=== PATIENT | male | born 1970 | race Two or more races ===

== ENCOUNTER 2018-12-02 00:11 | Emergency (ER) | payer MEDICAID ==
[~2018-12-02] VITALS: Ht 175.3 cm; Wt 88.5 kg
[2018-12-02 01:21] LABS: Basophils # (auto) 0.1 uL; Basophils % (auto) 0.9 % (0.0-2.0); Eosinophils # (auto) 0.3 uL; Eosinophils % (auto) 3.1 % (0.0-7.0); Hemoglobin 14.8 g/dL (13.5-17.5); Lymphocytes # (auto) 1.5 uL; Lymphocytes % (auto) 15.1 % (10.0-50.0); Mean Corpuscular Hemoglobin 29.9 pg (28.0-32.0); Mean Corpuscular Hgb Conc. 34.4 g/dL (32.0-36.0); Mean Corpuscular Volume 86.8 fL (80.0-100.0); Monocytes # (auto) 0.6 uL; Monocytes % (auto) 6.5 % (0.0-12.0); Neutrophils # (auto) 7.3 uL; Neutrophils % (auto) 74.4 % (37.0-80.0); Nucleated Red Blood Cells % 0.1 %; Platelet Count (auto) 385 10^3/uL (140-450); Red Blood Cells 4.95 10^6/uL (4.5-5.90); Red Cell Distribution Width 13.5 % (11.8-14.3); White Blood Cell 9.8 10^3/uL (4.4-10.8)
[2018-12-02 01:37] LABS: Chloride 107 mmol/L (98-107); Sodium 139 mmol/L (136-145)
[2018-12-02 01:40] LABS: Albumin 4.1 g/dL (3.4-5.0); Anion Gap 7 (5-15); Blood Urea Nitrogen 18 mg/dL (7-18); Calcium 9.2 mg/dL (8.5-10.1); Carbon Dioxide 25 mmol/L (21-32); Glucose 103 mg/dL (74-106)
[2018-12-02 01:46] LABS: Alanine Aminotransferase 25 U/L (16-61); Alkaline Phosphatase 117 U/L (45-117); Aspartate Aminotransferase 19 U/L (15-37); BUN/Creatinine Ratio 14.9; GFR African American 82 mL/min; GFR Non-African American 68 mL/min; Total Protein 8.4 g/dL (6.4-8.2)
[2018-12-02 01:55] LABS: Bilirubin, Total 0.2 mg/dL (0.2-1.0)
[2018-12-02 10:01] VITALS: BP 122/77
== END 2018-12-02 10:59 | disposition home or self-care (01) ==
LOC: ER 00:22
DX: R07.89 Other chest pain (principal); M25.551 Pain in right hip
CPT/HCPCS: 36415; 71045; 73501; 80053; 84484; 85025; 93005; A4565